=== PATIENT | female | born 1985 | race African-American/Black ===

== ENCOUNTER 2017-02-19 06:12 | Emergency (ER) | payer OTHER ==
[~2017-02-19 06:12] MED LIST: NO MEDICATIONS; ORUDIS75 M1 PO; PHENERGAN PR
== END 2017-02-19 06:42 | disposition home or self-care (01) ==
LOC: SED 06:12
DX: J02.9 Acute pharyngitis, unspecified (principal)
CPT/HCPCS: 87651; 99282